=== PATIENT | male | born 1995 | race Caucasian/White ===

== ENCOUNTER 2019-04-11 13:25 | Emergency (ER) | payer MEDICAID ==
[~2019-04-11] VITALS: Ht 167.6 cm; Wt 64.4 kg
[2019-04-11 13:31] VITALS: BP 135/77; Ht 167.6 cm; Wt 64.4 kg
== END 2019-04-11 15:10 | disposition home or self-care (01) ==
LOC: ED 13:25
DX: J40 Bronchitis, not specified as acute or chronic (principal); F17.200 Nicotine dependence, unspecified, uncomplicated; Z98.890 Other specified postprocedural states
CPT/HCPCS: 99406